=== PATIENT | male | born 1970 ===

== ENCOUNTER 2024-03-12 09:23 | Outpatient (CLI) | payer BC | END 2024-03-12 23:59 | disposition home or self-care (01) | LOC: RAD 09:23 | PROVIDERS: ATTEND Registered Nurse | DX: S37.001A Unspecified injury of right kidney, initial encounter (principal); K42.9 Umbilical hernia without obstruction or gangrene; R93.41 Abnormal radiologic findings on diagnostic imaging of renal pelvis, ureter, or bladder; N40.0 Benign prostatic hyperplasia without lower urinary tract symptoms; X58.XXXA Exposure to other specified factors, initial encounter; Y93.89 Activity, other specified; Y92.89 Other specified places as the place of occurrence of the external cause; Y99.8 Other external cause status | CPT/HCPCS: 76705; 76770 ==